=== PATIENT | male | born 1960 | race Caucasian/White ===

== ENCOUNTER 2017-11-30 20:46 | Inpatient (IN) | payer MEDICAID ==
--- NOTE | 2017-11-30 21:20 | ED Physician Chart ---
ED Chief Complaint/HPI - Patient Information Date Seen:: 11/30/17 Time Seen:: 21:10 Chief Complaint:: anemia History of Present Illness:: Patient sent from his halfway facility for hemoglobin of 7.3. Patient stated he stopped drinking alcohol about 2 weeks. He denies abdominal pain. Allergies:: Allergies Allergy/AdvReac Type Severity Reaction Status Date / Time No Known Allergies Allergy Verified 11/30/17 21:07 Historian:: Patient, EMS Review:: Nurse's Note Reviewed ED Review of Systems - Review of Systems General/Constitutional: No fever, No chills Skin: No skin lesions Head: No headache Eyes: No loss of vision ENT: No earache Neck: No neck pain Cardio Vascular: No chest pain, No palpitations Pulmonary: No SOB GI: No nausea, No vomiting, No diarrhea G/U: No dysuria Musculoskeletal: No bone or joint pain Endocrine: No polyuria Psychiatric: No prior psych history Hematopoietic: No bruising Allergic/Immuno: No urticaria Neurological: No syncope ED Past Medical History - Past Medical History Past Medical History: Other (Mr. cody; cirrhosis; portal hypertension; anemia ; denied prostatic hypertrophy; thrombotic cytopenic purpura; status post septic shock; history of opioid and methadone abuse; cellulitis) Family History: None Social History: Smoker (quit smoking a long time ago) Family Medical History - Family Member Mother History Unknown: Yes ED Physical Exam - Physical Examination General/Constitutional: No distress Other Gen/Cons comments:: Mildly chronically ill-appearing Head: Atraumatic Eyes: Lids, conjuctiva normal, PERRL Skin: Nl inspection ENMT: External ears, nose nl, TM canals nl, Nasal exam nl Other ENMT comments:: Poor dental hygiene Neck: No nuchal rigidity Respiratory: Nl effort/Exclusion, Clear to Auscultation Cardio Vascular: RRR, No murmur, gallop, rubs GI: No tenderness/rebounding/guarding, Normal BS's Other GI comments:: Abdomen protuberant : No CVA tenderness Extremities: Normal digits & nails Neuro/Psych: No focal deficits ED Labs/Radiology/EKG Results - Lab Results Results: Abnormal Lab Results 11/30/17 11/30/17 11/30/17 21:31 21:31 21:31 WBC 10.3 RBC 2.70 L Hgb 8.2 L Hct 24.6 L MCV 91.3 MCH 30.5 H MCHC Differential 33.4 RDW 14.6 Plt Count 171 MPV 6.9 Neutrophils % 64.3 Lymphocytes % 22.3 Monocytes % 10.9 H Eosinophils % 2.2 Basophils % 0.3 PT 12.0 H INR 1.14 Sodium 126 L Potassium 3.9 Chloride 103 Carbon Dioxide 16.4 L Anion Gap 10.5 BUN 16 Creatinine 1.0 Est GFR ( Amer) > 60.0 Est GFR (Non-Af Amer) > 60.0 BUN/Creatinine Ratio 16.0 Glucose 153 H Calcium 8.5 L Magnesium 1.6 L ED Assessment - Assessment General Assessment: will not order stat transfusion because Hb 8.2 ED Septic Shock - . Is Septic Shock (SBP<90, OR Lactate>4 mmol\L) present?: No ED Reassessment (Disposition) - Reassessment Reassessment Condition:: Unchanged - Diagnosis Diagnosis:: anemia; cirrhosis; hyponatremia - Patient Disposition Spoke to:: Mason Cooper Admitting Medical Physician:: Mason Cooper Condition at Disposition:: Stable, Unchanged
[2017-11-30 21:43] LABS: % BASOPHILS 0.3 % (0.0-2.0); % EOSINOPHILS 2.2 % (0.0-5.0); % LYMPHOCYTES 22.3 % (20.0-50.0); % MONOCYTES 10.9 % (2.0-10.0); % NEUTROPHILS 64.3 % (40.0-80.0); EOSINOPHILE ABSOLUTE 0.2 Th/cmm (0.1-0.4); HEMATOCRIT 24.6 % (41.0-60); HEMOGLOBIN 8.2 gm/dL (12-16); LYMPHOCYTE ABSOLUTE 2.3 Th/cmm (1.5-3.0); MEAN CELL VOLUME 91.3 fl (80-99); MEAN CORPUSCULAR HEMOGLOBIN 30.5 pg (26.0-30.0); MEAN CORPUSCULAR HGB CONC 33.4 pg (28.0-36.0); MEAN PLATELET VOLUME 6.9 fl; MONOCYTE ABSOLUTE 1.1 Th/cmm (0.3-1.0); NEUTROPHILE ABSOLUTE 6.7 Th/cmm (1.8-8.0); PLATELET COUNT 171 Th/cmm (150-400); RED CELL DISTRIBUTION WIDTH 14.6 % (11.5-20.0); WHITE BLOOD COUNT 10.3 Th/cmm (4.8-10.8)
[2017-11-30 21:55] LABS: INR 1.14 (0.5-1.4)
[2017-11-30 21:57] LABS: ANION GAP 10.5 (7.0-16.0); BUN - UREA NITROGEN 16 mg/dL (7-25); CALCIUM SERUM 8.5 mg/dL (8.6-10.3); CARBON DIOXIDE 16.4 mEq/L (21.0-31.0); CHLORIDE 103 mEq/L (98-107); GFR AFRICAN-AMERICAN > 60.0 ml/min (>90); GFR NON AFRICAN-AMERICAN > 60.0 ml/min; GLUCOSE 153 mg/dL (70-105); MAGNESIUM 1.6 mg/dL (1.9-2.7); POTASSIUM SERUM 3.9 mEq/L (3.5-5.1); SODIUM SERUM 126 mEq/L (136-145)
[2017-11-30] MEDS ORDERED: Albuterol/Ipratropium Neb 3 ML AERS HHN PRN (22:17)
[2017-11-30] MEDS: Morphine Sulfate 2 mg/mL 1mL Syr IVP PRN (23:56)
[2017-12-01] MEDS: Morphine Sulfate 2 mg/mL 1mL Syr IVP PRN ×5 (03:20→20:04)
[2017-12-01 05:34] LABS: % BASOPHILS 1.2 % (0.0-2.0); % EOSINOPHILS 2.1 % (0.0-5.0); % MONOCYTES 8.8 % (2.0-10.0); % NEUTROPHILS 69.9 % (40.0-80.0); BASOPHILE ABSOLUTE 0.1 Th/cumm (0-0.2); EOSINOPHILE ABSOLUTE 0.2 Th/cmm (0.1-0.4); LYMPHOCYTE ABSOLUTE 1.7 Th/cmm (1.5-3.0); MEAN CELL VOLUME 91.4 fl (80-99); MEAN CORPUSCULAR HEMOGLOBIN 30.7 pg (26.0-30.0); MEAN CORPUSCULAR HGB CONC 33.6 pg (28.0-36.0); MEAN PLATELET VOLUME 6.7 fl; MONOCYTE ABSOLUTE 0.8 Th/cmm (0.3-1.0); NEUTROPHILE ABSOLUTE 6.7 Th/cmm (1.8-8.0); PLATELET COUNT 149 Th/cmm (150-400); RED BLOOD COUNT 2.45 Mil/cmm (4.30-5.70); RED CELL DISTRIBUTION WIDTH 14.8 % (11.5-20.0); WHITE BLOOD COUNT 9.5 Th/cmm (4.8-10.8)
[2017-12-01 05:43] VITALS: BP 129/77
[2017-12-01 05:51] LABS: HEMATOCRIT 22.4 % (41.0-60); HEMOGLOBIN 7.5 gm/dL (12-16)
[2017-12-01 05:55] LABS: CHOLESTEROL 61 mg/dL (<200); HDL -HIGH DENSITY LIPOPROTEIN 13 mg/dL (23-92); TRIGLYCERIDES 97 mg/dL (<150)
[2017-12-01 05:56] LABS: ANION GAP 9.4 (7.0-16.0); BUN - UREA NITROGEN 17 mg/dL (7-25); CALCIUM SERUM 8.3 mg/dL (8.6-10.3); CARBON DIOXIDE 17.5 mEq/L (21.0-31.0); CHLORIDE 103 mEq/L (98-107); CREATININE - SERUM 1.1 mg/dL (0.7-1.3); GFR AFRICAN-AMERICAN > 60.0 ml/min (>90); GFR NON AFRICAN-AMERICAN > 60.0 ml/min; GLUCOSE 140 mg/dL (70-105); POTASSIUM SERUM 3.9 mEq/L (3.5-5.1); SODIUM SERUM 126 mEq/L (136-145)
[2017-12-01 11:07] LABS: ALB/GLOB RATIO 0.4 (1.0-1.8); ALBUMIN 2.2 gm/dL (4.2-5.5); BILIRUBIN,DIRECT 1.17 mg/dL (0.0-0.2); BILIRUBIN,TOTAL 1.9 mg/dL (0.3-1.0); TOTAL PROTEIN,SERUM 7.4 gm/dL (6.0-8.3)
--- NOTE | 2017-12-01 14:27 | Diagnostic Imaging Report ---
Abdominal scan HISTORY: Cirrhosis, pain The liver appears enlarged. No focal lesions. The exam of the gallbladder demonstrates an approximate 1.0 cm intraluminal echogenic density with acoustic shadowing. Findings are consistent with cholelithiasis. No biliary dilatation (common bile duct equals 3 mm). The pancreas cannot be seen due to bowel gas. No focal renal lesions. No hydronephrosis. The spleen is enlarged (19.0 cm length). No other retroperitoneal or intra-abdominal abnormalities. IMPRESSION: 1. Somewhat limited exam due to patient's size, body habitus, bowel gas 2. Hepatomegaly 3. Findings consistent with cholelithiasis
--- NOTE | 2017-12-01 17:27 | History and Physical ---
History of Present Illness - HPI Chief Complaint: low hgb 7.3 HPI: This is a 57 year old male who is a resident of [facility] who is admitted for low hgb of 7.3. Vital Signs: Last Vital Signs Temp 98.8 F 12/01/17 12:00 Pulse 103 12/01/17 12:00 Resp 20 12/01/17 12:00 BP 132/66 12/01/17 12:00 Pulse Ox 98 12/01/17 12:00 Past Medical History Other History: cirrhosis; portal hypertension; anemia; denied prostatic hypertrophy; thrombotic cytopenic purpura; status post septic shock; history of opioid and methadone abuse; cellulitis Family Medical History - Family Member Mother History Unknown: Yes Social History Smoke: No, Quit Alcohol: Heavy Drugs: None Lives: Halfway - Medications Home Medications: Home Medication Medication Instructions Recorded Type Acetaminophen [Tylenol] 325 mg PO Q4HR PRN 11/30/17 History Ascorbic Acid [Vitamin C] 500 mg PO DAILY 11/30/17 History Bisacodyl [Dulcolax 10 Mg Supp] 10 mg RC DAILY PRN 11/30/17 History Clonidine HCl [Catapres] 0.1 mg PO Q4HR PRN 11/30/17 History Docusate Sodium [Colace] 100 mg PO DAILY 11/30/17 History Ipratropium Neb 0.5 mg/2.5 mL 0.5 mg HHN Q6HR PRN 11/30/17 History [Atrovent Neb 0.5MG/2.5ML] Levalbuterol HCl [Xopenex 3 ml] 3 ml IH Q6HR PRN 11/30/17 History Magnesium Hydroxide [Milk of 30 ml PO HS PRN 11/30/17 History Magnesia] Multivitamin w/ Minerals 1 tab PO DAILY 11/30/17 History [Theragran M] Neomycin Sulfate [Neomycin] 250 mg PO Q6HR 11/30/17 History Ondansetron [Zofran ODT] 4 mg PO Q6HR 11/30/17 History Pantoprazole [Protonix] 40 mg PO BID 11/30/17 History Vancomycin HCl 750 mg IV Q12HR 11/30/17 History Zolpidem Tartrate [Ambien] 5 mg PO HS PRN 11/30/17 History - Allergies Allergies/Adverse Reactions: Allergies Allergy/AdvReac Type Severity Reaction Status Date / Time No Known Allergies Allergy Verified 11/30/17 21:07 Review of Systems - Review of Systems Constitutional: Report: No Significant Eyes: Report: No Significant ENT: Report: No Significant Respiratory: Report: No Significant Cardiovascular: Report: No Significant Gastrointestinal: Report: No Significant Genitourinary: Report: No Significant Musculoskeletal: Report: No Significant Skin: Report: No Significant Neurological: Report: Weakness Physical Exam - Physical Exam HEENT: Report: Ears Nose Throat within normal limits Neck: Report: Within normal limits Cardiovascular Systems: Report: +s1/s2 noted Respiratory: Report: Breath Sounds are within normal limits Abdomen: Report: Non-tender to palpation Back: Report: Inspection of back is within normal limits. Extremities: Report: Non-tender to palpation. Skin: Report: Color of skin is within normal limits - Lab Results All Lab Results last 24 hours: Laboratory Results - last 24 hr 11/30/17 12/01/17 12/01/17 23:20 05:20 05:20 WBC 9.5 RBC 2.45 L Hgb 7.5 L* Hct 22.4 L MCV 91.4 MCH 30.7 H MCHC Differential 33.6 RDW 14.8 Plt Count 149 L MPV 6.7 Neutrophils % 69.9 Lymphocytes % 18.0 L Monocytes % 8.8 Eosinophils % 2.1 Basophils % 1.2 Sodium 126 L Potassium 3.9 Chloride 103 Carbon Dioxide 17.5 L Anion Gap 9.4 BUN 17 Creatinine 1.1 Est GFR ( Amer) > 60.0 Est GFR (Non-Af Amer) > 60.0 BUN/Creatinine Ratio 15.5 Glucose 140 H Calcium 8.3 L Total Bilirubin Direct Bilirubin AST ALT Alkaline Phosphatase Ammonia 39 Total Protein Albumin Globulin Albumin/Globulin Ratio Triglycerides Cholesterol LDL Cholesterol Direct HDL Cholesterol TSH 12/01/17 12/01/17 12/01/17 05:20 05:20 05:20 WBC RBC Hgb Hct MCV MCH MCHC Differential RDW Plt Count MPV Neutrophils % Lymphocytes % Monocytes % Eosinophils % Basophils % Sodium Potassium Chloride Carbon Dioxide Anion Gap BUN Creatinine Est GFR ( Amer) Est GFR (Non-Af Amer) BUN/Creatinine Ratio Glucose Calcium Total Bilirubin 1.9 H Direct Bilirubin 1.17 H AST 88 H ALT 63 H Alkaline Phosphatase 124 H Ammonia Total Protein 7.4 Albumin 2.2 L Globulin 5.2 Albumin/Globulin Ratio 0.4 L Triglycerides 97 Cholesterol 61 LDL Cholesterol Direct 37 L HDL Cholesterol 13 L TSH 6.18 H - Assessment Assessment: anemia cirrhosis portal hypertension 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
[2017-12-01 19:23] LABS: % BASOPHILS 3.9 % (0.0-2.0); % EOSINOPHILS 2.4 % (0.0-5.0); % LYMPHOCYTES 19.7 % (20.0-50.0); % MONOCYTES 9.2 % (2.0-10.0); % NEUTROPHILS 64.8 % (40.0-80.0); BASOPHILE ABSOLUTE 0.4 Th/cumm (0-0.2); EOSINOPHILE ABSOLUTE 0.2 Th/cmm (0.1-0.4); HEMATOCRIT 24.2 % (41.0-60); HEMOGLOBIN 8.2 gm/dL (12-16); LYMPHOCYTE ABSOLUTE 1.8 Th/cmm (1.5-3.0); MEAN CELL VOLUME 90.3 fl (80-99); MEAN CORPUSCULAR HEMOGLOBIN 30.7 pg (26.0-30.0); MONOCYTE ABSOLUTE 0.9 Th/cmm (0.3-1.0); PLATELET COUNT 164 Th/cmm (150-400); RED BLOOD COUNT 2.68 Mil/cmm (4.30-5.70); RED CELL DISTRIBUTION WIDTH 14.6 % (11.5-20.0); WHITE BLOOD COUNT 9.3 Th/cmm (4.8-10.8)
--- NOTE | 2017-12-01 21:14 | History & Physical ---
ADMIT DATE: 12/01/2017 DICTATED FOR: Dr. Cooper JOB# [id number]
[2017-12-01] MEDS: Sodium Chloride 0.9% 1,000 ML IV SCH ×2 (22:41)
[2017-12-02] MEDS: Morphine Sulfate 2 mg/mL 1mL Syr IVP PRN ×4 (01:52→20:01)
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
[2017-12-02 06:00] LABS: % BASOPHILS 0.1 % (0.0-2.0); EOSINOPHILE ABSOLUTE 0.2 Th/cmm (0.1-0.4); LYMPHOCYTE ABSOLUTE 1.8 Th/cmm (1.5-3.0); RED BLOOD COUNT 2.49 Mil/cmm (4.30-5.70); RED CELL DISTRIBUTION WIDTH 14.5 % (11.5-20.0)
[2017-12-02 06:11] LABS: ANION GAP 9.8 (7.0-16.0); BUN - UREA NITROGEN 18 mg/dL (7-25); CALCIUM SERUM 7.8 mg/dL (8.6-10.3); CARBON DIOXIDE 17.7 mEq/L (21.0-31.0); CHLORIDE 103 mEq/L (98-107); CREATININE - SERUM 1.1 mg/dL (0.7-1.3); GFR AFRICAN-AMERICAN > 60.0 ml/min (>90); GFR NON AFRICAN-AMERICAN > 60.0 ml/min; GLUCOSE 110 mg/dL (70-105); POTASSIUM SERUM 3.5 mEq/L (3.5-5.1); SODIUM SERUM 127 mEq/L (136-145)
[2017-12-02 06:12] LABS: INR 1.22 (0.5-1.4); PROTHROMBIN TIME (TEST) 12.8 SECONDS (9.5-11.5)
[2017-12-02 07:52] LABS: HEMATOCRIT 22.6 % (41.0-60); MEAN CELL VOLUME 90.8 fl (80-99); MEAN CORPUSCULAR HGB CONC 34.2 pg (28.0-36.0)
[2017-12-02 07:53] LABS: % EOSINOPHILS 2.7 % (0.0-5.0); % MONOCYTES 10.5 % (2.0-10.0); % NEUTROPHILS 65.7 % (40.0-80.0); MEAN PLATELET VOLUME 7.5 fl; MONOCYTE ABSOLUTE 0.9 Th/cmm (0.3-1.0); NEUTROPHILE ABSOLUTE 5.7 Th/cmm (1.8-8.0)
[2017-12-02 07:56] LABS: PLATELET COUNT 128 Th/cmm (150-400); WHITE BLOOD COUNT 8.6 Th/cmm (4.8-10.8)
--- NOTE | 2017-12-02 08:54 | GI Progress Note ---
Subjective - Review of Systems Service Date: 12/02/17 Subjective: Tolerated half bowel prep, reports he is clear. Hgb 7.7 Objective - Results Result Diagrams: 12/02/17 05:02 12/02/17 05:02 Recent Labs: Laboratory Last Values WBC 8.6 Th/cmm (4.8-10.8) 12/02/17 05:02 RBC 2.49 Mil/cmm (4.30-5.70) L 12/02/17 05:02 Hgb 7.7 gm/dL (12-16) L* 12/02/17 05:02 Hct 22.6 % (41.0-60) L 12/02/17 05:02 MCV 90.8 fl (80-99) 12/02/17 05:02 MCH 31.0 pg (26.0-30.0) H 12/02/17 05:02 MCHC Differential 34.2 pg (28.0-36.0) 12/02/17 05:02 RDW 14.5 % (11.5-20.0) 12/02/17 05:02 Plt Count 128 Th/cmm (150-400) L D 12/02/17 05:02 MPV 7.5 fl 12/02/17 05:02 Neutrophils % 65.7 % (40.0-80.0) 12/02/17 05:02 Lymphocytes % 21.0 % (20.0-50.0) 12/02/17 05:02 Monocytes % 10.5 % (2.0-10.0) H 12/02/17 05:02 Eosinophils % 2.7 % (0.0-5.0) 12/02/17 05:02 Basophils % 0.1 % (0.0-2.0) 12/02/17 05:02 PT 12.8 SECONDS (9.5-11.5) H 12/02/17 05:02 INR 1.22 (0.5-1.4) 12/02/17 05:02 Sodium 127 mEq/L (136-145) L 12/02/17 05:02 Potassium 3.5 mEq/L (3.5-5.1) 12/02/17 05:02 Chloride 103 mEq/L (98-107) 12/02/17 05:02 Carbon Dioxide 17.7 mEq/L (21.0-31.0) L 12/02/17 05:02 Anion Gap 9.8 (7.0-16.0) 12/02/17 05:02 BUN 18 mg/dL (7-25) 12/02/17 05:02 Creatinine 1.1 mg/dL (0.7-1.3) 12/02/17 05:02 Est GFR ( Amer) > 60.0 ml/min (>90) 12/02/17 05:02 Est GFR (Non-Af Amer) > 60.0 ml/min 12/02/17 05:02 BUN/Creatinine Ratio 16.4 12/02/17 05:02 Glucose 110 mg/dL (70-105) H 12/02/17 05:02 Calcium 7.8 mg/dL (8.6-10.3) L 12/02/17 05:02 Magnesium 1.6 mg/dL (1.9-2.7) L 11/30/17 21:31 Total Bilirubin 1.9 mg/dL (0.3-1.0) H 12/01/17 05:20 Direct Bilirubin 1.17 mg/dL (0.0-0.2) H 12/01/17 05:20 AST 88 U/L (13-39) H 12/01/17 05:20 ALT 63 U/L (7-52) H 12/01/17 05:20 Alkaline Phosphatase 124 U/L (34-104) H 12/01/17 05:20 Ammonia 39 umol/L (16-53) 11/30/17 23:20 Total Protein 7.4 gm/dL (6.0-8.3) 12/01/17 05:20 Albumin 2.2 gm/dL (4.2-5.5) L 12/01/17 05:20 Globulin 5.2 gm/dL 12/01/17 05:20 Albumin/Globulin Ratio 0.4 (1.0-1.8) L 12/01/17 05:20 Triglycerides 97 mg/dL (<150) 12/01/17 05:20 Cholesterol 61 mg/dL (<200) 12/01/17 05:20 LDL Cholesterol Direct 37 mg/dL (75-193) L 12/01/17 05:20 HDL Cholesterol 13 mg/dL (23-92) L 12/01/17 05:20 TSH 6.18 uIU/ml (0.34-5.60) H 12/01/17 05:20 Blood Type A POSITIVE 11/30/17 21:31 Antibody Screen NEGATIVE 11/30/17 21:31 Crossmatch See Detail 11/30/17 21:31 - Physical Exam Vitals and I&O: Vital Signs Temp 98.8 F 12/02/17 08:00 Pulse 95 12/02/17 08:00 Resp 18 12/02/17 08:00 BP 114/65 12/02/17 08:00 Pulse Ox 100 12/02/17 08:00 Intake & Output 12/01/17 12/02/17 12/02/17 18:59 06:59 18:59 Intake Total 1850 1000 Balance 1850 1000 Weight (lbs) 106.594 kg Intake: Intake, IV Amount 1000 Sodium Chloride 0.9% 1, 1000 000 ml @ 50 mls/hr IV . Q20H [facility] Rx#:[id number] Oral 1600 Blood Product 250 Other: # Voids 5 # Bowel Movements 2 Active Medications: Current Medications Albuterol/Ipratropium (Duoneb Neb) 3 ml HHN Q4HRT PRN PRN Reason: Shortness of Breath Stop: 01/29/18 22:16 Sodium Chloride (Nacl 0.9%) 1,000 mls @ 50 mls/hr IV .Q20H [facility] Stop: 01/29/18 22:17 Last Admin: 12/01/17 22:41 Dose: 50 mls/hr Morphine Sulfate (Morphine) 1 mg IVP Q3HR PRN PRN Reason: Pain (Moderate) Stop: 01/29/18 23:19 Last Admin: 12/01/17 13:11 Dose: 1 mg Morphine Sulfate (Morphine) 2 mg IVP Q3HR PRN PRN Reason: Pain (Severe) Stop: 01/29/18 23:21 Last Admin: 12/02/17 05:04 Dose: 2 mg Ondansetron HCl (Zofran) 4 mg IVP Q6H PRN PRN Reason: Nausea / Vomiting Stop: 01/29/18 23:23 Pantoprazole Sodium (Protonix) 40 mg IVP DAILY [facility] Stop: 01/30/18 08:59 Last Admin: 12/01/17 08:37 Dose: 40 mg General: Alert, Oriented x3 HEENT: Atraumatic Neck: Supple Cardiovascular: Regular rate Abdomen: Bowel sounds, Soft, Other (no guard, mild distension, no rebound) Neurological: Normal speech Psych/Mental Status: Mental status NL - Procedures Procedures: Procedures Procedure Code Date BLOOD TRANSFUSION SERVICE 35259 11/30/17 TRANSFUSE NONAUT RED BLOOD CELLS IN PERIPH VEIN, [facility] [id number] 11/30/17 Assessment/Plan - Assessment Assessment: # Anemia Unclear etiology. Possibilities include GI blood loss, bone marrow suppression from EtOH, or non blood loss anemia. EGD/colo scheduled for today. # Elevated LFTs # Alcoholism May have early cirrhosis, although US does not show classic changes, and there is no ascites. Likely at least has component of alcoholic liver disease causing elevated LFTs. Plan: - abstain from EtOH - join AA - EGD/colo - track LFTs - transfuse to keep hgb > 7 - may need iron supplementation
--- NOTE | 2017-12-02 10:25 | Operative Report ---
DATE OF SURGERY: 12/02/2017 INPATIENT EGD AND COLONOSCOPY REPORT ENDOSCOPIST: Henrry Silva M.D. PROCEDURE PERFORMED: EGD with biopsy and colonoscopy with control of bleeding. PREOPERATIVE DIAGNOSES: Alcoholism and anemia. POSTOPERATIVE DIAGNOSES: Gastritis, gastric erosions and rectal ulcer, diverticulosis. INDICATIONS: The patient is a 57-year-old male who is homeless and admits to drinking daily alcohol and using opiates, who has been admitted to a custodial facility recovering from a prolonged hospitalization for weakness and lower extremity cellulitis and was sent to the hospital for anemia. The patient never before had endoscopic examination. CONSENT: Informed consent was obtained from the patient. The risks and benefits of the procedure were discussed and included but not limited to infection, bleeding, perforation, need for surgery, cardiopulmonary complications, missed pathology and . The patient indicates understanding of these risks and wished to go forward with the procedure and signed the consent form. ANESTHESIA: Anesthesia was administered under the care of an anesthesiologist in this case. PROCEDURE IN DETAIL: After the initiation of general anesthesia under the care of anesthesiologist the patient was positioned in the left lateral decubitus position and a mouthpiece was inserted and secured. Next, the gastroscope was introduced into the mouth and guided under direct visualization into the esophagus, stomach and duodenum. The scope was then slowly withdrawn making sure to examine the entire mucosa. Retroflexion was performed in the stomach prior to scope was straightening and withdrawal from the body. The patient was repositioned into the colonoscopy position. A rectal exam was performed, and after this, a well lubricated colonoscope was introduced into the anus and guided under direct visualization into the level of the cecum, which was confirmed by the presence of the appendiceal orifice and IC valve, which were photographed. The scope was then systematically and slowly withdrawn making sure to carefully examine the entire colonic mucosa as much as was available. Retroflexion was performed in the rectum prior to scope straightening and withdrawal from the body. There were no obvious complications at the end of procedure. FINDINGS: EGD PORTION: Esophagus: The GE junction was located at 43 cm from the incisors. There were possibly trace esophageal varices, although these flattened on insufflation. There is no sign of esophagitis, evidence of bleeding in this area or mass lesion. Stomach: The stomach displayed diffuse gastritis in the cardia and fundus area. There appeared to be what looked like portal hypertensive gastropathy. In addition, there were large gastric folds in the gastric body, there were also gastric erosions, small gastric ulcers that were nonbleeding located in the antrum and angularis area. Excisional biopsies were taken from the antrum and from the gastric body separately as well as ROSE MARIE testing. There was no mass lesion found in the stomach. Duodenum: Duodenal bulb and second portion appeared endoscopically normal. COLONOSCOPY PORTION: The [place] bowel prep score was 2 in all segments of the colon. There were some areas of solid stool that obscured some areas to view and thus polyps less than 1 cm in size may have been missed in these areas. There were no polyps found on this examination. There was [id number] diverticulosis in the sigmoid colon that was nonbleeding at this time. Additionally, in the rectum at about 10 cm, there was a linear ulcer. It appeared to have a visible vessel within it. This was mildly oozing at the time of the endoscopy and a single clip was used to cover this area and hemostasis was achieved. On retroflexed view, there were small internal hemorrhoids noted. IMPRESSION: 1. Gastropathy and gastritis. 2. Small gastric erosions and gastric ulcer, status post biopsies. 3. Diverticulosis of the sigmoid colon. 4. Rectal ulcer with visible vessel, status post Hemoclip. 5. Internal hemorrhoids. Although the patient did not report any hematochezia, it is possible that the rectal ulcer that was observed did contribute to the patient's anemia, which now has been clipped although I do suspect that the patient has a component of the anemia from alcoholism and nutritional deficiency as well. RECOMMENDATION: 1. Follow up biopsy results. Treat H. pylori if positive. 2. The patient is not due for another colonoscopy for another 5 years. 3. The patient likely will benefit from iron supplementation and we will start this now. Follow up iron studies. 4. 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 Thank you for allowing me to participate in this patient's care. Please call with any further questions. [facility]# [id number]
[2017-12-02] MEDS ORDERED: fentaNYL Citrate 100 mcg/2mL Vial ONE (10:43)
--- NOTE | 2017-12-02 11:56 | General Progress Note ---
Subjective - Review of Systems Events since last encounter: egd and colonoscopy done this am no distress Objective - Results Result Diagrams: 12/02/17 05:02 12/02/17 05:02 Recent Labs: Laboratory Last Values WBC 8.6 Th/cmm (4.8-10.8) 12/02/17 05:02 RBC 2.49 Mil/cmm (4.30-5.70) L 12/02/17 05:02 Hgb 7.7 gm/dL (12-16) L* 12/02/17 05:02 Hct 22.6 % (41.0-60) L 12/02/17 05:02 MCV 90.8 fl (80-99) 12/02/17 05:02 MCH 31.0 pg (26.0-30.0) H 12/02/17 05:02 MCHC Differential 34.2 pg (28.0-36.0) 12/02/17 05:02 RDW 14.5 % (11.5-20.0) 12/02/17 05:02 Plt Count 128 Th/cmm (150-400) L D 12/02/17 05:02 MPV 7.5 fl 12/02/17 05:02 Neutrophils % 65.7 % (40.0-80.0) 12/02/17 05:02 Lymphocytes % 21.0 % (20.0-50.0) 12/02/17 05:02 Monocytes % 10.5 % (2.0-10.0) H 12/02/17 05:02 Eosinophils % 2.7 % (0.0-5.0) 12/02/17 05:02 Basophils % 0.1 % (0.0-2.0) 12/02/17 05:02 PT 12.8 SECONDS (9.5-11.5) H 12/02/17 05:02 INR 1.22 (0.5-1.4) 12/02/17 05:02 Sodium 127 mEq/L (136-145) L 12/02/17 05:02 Potassium 3.5 mEq/L (3.5-5.1) 12/02/17 05:02 Chloride 103 mEq/L (98-107) 12/02/17 05:02 Carbon Dioxide 17.7 mEq/L (21.0-31.0) L 12/02/17 05:02 Anion Gap 9.8 (7.0-16.0) 12/02/17 05:02 BUN 18 mg/dL (7-25) 12/02/17 05:02 Creatinine 1.1 mg/dL (0.7-1.3) 12/02/17 05:02 Est GFR ( Amer) > 60.0 ml/min (>90) 12/02/17 05:02 Est GFR (Non-Af Amer) > 60.0 ml/min 12/02/17 05:02 BUN/Creatinine Ratio 16.4 12/02/17 05:02 Glucose 110 mg/dL (70-105) H 12/02/17 05:02 Calcium 7.8 mg/dL (8.6-10.3) L 12/02/17 05:02 Magnesium 1.6 mg/dL (1.9-2.7) L 11/30/17 21:31 Total Bilirubin 1.9 mg/dL (0.3-1.0) H 12/01/17 05:20 Direct Bilirubin 1.17 mg/dL (0.0-0.2) H 12/01/17 05:20 AST 88 U/L (13-39) H 12/01/17 05:20 ALT 63 U/L (7-52) H 12/01/17 05:20 Alkaline Phosphatase 124 U/L (34-104) H 12/01/17 05:20 Ammonia 39 umol/L (16-53) 11/30/17 23:20 Total Protein 7.4 gm/dL (6.0-8.3) 12/01/17 05:20 Albumin 2.2 gm/dL (4.2-5.5) L 12/01/17 05:20 Globulin 5.2 gm/dL 12/01/17 05:20 Albumin/Globulin Ratio 0.4 (1.0-1.8) L 12/01/17 05:20 Triglycerides 97 mg/dL (<150) 12/01/17 05:20 Cholesterol 61 mg/dL (<200) 12/01/17 05:20 LDL Cholesterol Direct 37 mg/dL (75-193) L 12/01/17 05:20 HDL Cholesterol 13 mg/dL (23-92) L 12/01/17 05:20 TSH 6.18 uIU/ml (0.34-5.60) H 12/01/17 05:20 Ethyl Alcohol < 10 mg/dL (0-10) 12/02/17 05:02 Blood Type A POSITIVE 11/30/17 21:31 Antibody Screen NEGATIVE 11/30/17 21:31 Crossmatch See Detail 11/30/17 21:31 - Physical Exam Vitals and I&O: Vital Signs Temp 98.8 F 12/02/17 08:00 Pulse 95 12/02/17 08:00 Resp 18 12/02/17 08:00 BP 114/65 12/02/17 08:00 Pulse Ox 100 12/02/17 08:00 Intake & Output 12/01/17 12/02/17 12/02/17 18:59 06:59 18:59 Intake Total 1850 1000 Balance 1850 1000 Weight (lbs) 106.594 kg Intake: Intake, IV Amount 1000 Sodium Chloride 0.9% 1, 1000 000 ml @ 50 mls/hr IV . Q20H [facility] Rx#:[id number] Oral 1600 Blood Product 250 Other: # Voids 5 # Bowel Movements 2 Active Medications: Current Medications Albuterol/Ipratropium (Duoneb Neb) 3 ml HHN Q4HRT PRN PRN Reason: Shortness of Breath Stop: 01/29/18 22:16 Ferrous Sulfate (Iron) 325 mg PO BID [facility] Stop: 01/31/18 16:59 Sodium Chloride (Nacl 0.9%) 1,000 mls @ 50 mls/hr IV .Q20H [facility] Stop: 01/29/18 22:17 Last Admin: 12/01/17 22:41 Dose: 50 mls/hr Morphine Sulfate (Morphine) 1 mg IVP Q3HR PRN PRN Reason: Pain (Moderate) Stop: 01/29/18 23:19 Last Admin: 12/01/17 13:11 Dose: 1 mg Morphine Sulfate (Morphine) 2 mg IVP Q3HR PRN PRN Reason: Pain (Severe) Stop: 01/29/18 23:21 Last Admin: 12/02/17 05:04 Dose: 2 mg Ondansetron HCl (Zofran) 4 mg IVP Q6H PRN PRN Reason: Nausea / Vomiting Stop: 01/29/18 23:23 Pantoprazole Sodium (Protonix) 40 mg IVP DAILY [facility] Stop: 01/30/18 08:59 Last Admin: 12/02/17 09:33 Dose: Not Given General: Alert, Oriented x3 HEENT: Atraumatic Neck: Supple Cardiovascular: Regular rate Abdomen: Bowel sounds, Soft, Other (no guard, mild distension, no rebound) Neurological: Normal speech Psych/Mental Status: Mental status NL - Procedures Procedures: Procedures Procedure Code Date BLOOD TRANSFUSION SERVICE 54174 11/30/17 TRANSFUSE NONAUT RED BLOOD CELLS IN PERIPH VEIN, PERC 22327N7 11/30/17
[2017-12-02 12:12] LABS: HEP A AB IGM Negative (Negative); HEP B CORE IGM Negative (Negative); HEP B SURFACE AG QL Negative (Negative); HEP C ANTIBODY >11.0 s/co ratio (0.0-0.9)
[2017-12-02] MEDS: Venelex 60gm Tube TP SCH (18:01)
[2017-12-02] MEDS: Ferrous Sulfate 325 MG TAB PO SCH (18:01)
[2017-12-02] MEDS: Sodium Chloride 0.9% 1,000 ML IV SCH (20:08)
[2017-12-03] MEDS: Morphine Sulfate 2 mg/mL 1mL Syr IVP PRN ×5 (00:34→21:56)
[2017-12-03 05:08] LABS: % BASOPHILS 0.1 % (0.0-2.0); % EOSINOPHILS 2.3 % (0.0-5.0); % LYMPHOCYTES 19.4 % (20.0-50.0); % MONOCYTES 8.6 % (2.0-10.0); % NEUTROPHILS 69.6 % (40.0-80.0); EOSINOPHILE ABSOLUTE 0.2 Th/cmm (0.1-0.4); HEMATOCRIT 24.4 % (41.0-60); HEMOGLOBIN 8.3 gm/dL (12-16); LYMPHOCYTE ABSOLUTE 1.5 Th/cmm (1.5-3.0); MEAN CELL VOLUME 90.2 fl (80-99); MEAN CORPUSCULAR HEMOGLOBIN 30.5 pg (26.0-30.0); MEAN CORPUSCULAR HGB CONC 33.8 pg (28.0-36.0); MEAN PLATELET VOLUME 7.1 fl; MONOCYTE ABSOLUTE 0.7 Th/cmm (0.3-1.0); NEUTROPHILE ABSOLUTE 5.2 Th/cmm (1.8-8.0); PLATELET COUNT 116 Th/cmm (150-400); RED BLOOD COUNT 2.71 Mil/cmm (4.30-5.70); RED CELL DISTRIBUTION WIDTH 14.1 % (11.5-20.0); WHITE BLOOD COUNT 7.6 Th/cmm (4.8-10.8)
[2017-12-03 05:19] LABS: ANION GAP 7.9 (7.0-16.0); BUN - UREA NITROGEN 15 mg/dL (7-25); CALCIUM SERUM 7.8 mg/dL (8.6-10.3); CARBON DIOXIDE 18.6 mEq/L (21.0-31.0); CHLORIDE 105 mEq/L (98-107); GFR AFRICAN-AMERICAN > 60.0 ml/min (>90); GFR NON AFRICAN-AMERICAN > 60.0 ml/min; GLUCOSE 115 mg/dL (70-105); POTASSIUM SERUM 3.5 mEq/L (3.5-5.1); SODIUM SERUM 128 mEq/L (136-145)
[2017-12-03] MEDS: Ferrous Sulfate 325 MG TAB PO SCH ×2 (08:17→17:25)
[2017-12-03] MEDS: Venelex 60gm Tube TP SCH (08:17)
--- NOTE | 2017-12-03 09:57 | General Progress Note ---
Subjective - Review of Systems Events since last encounter: patient awake in no distress Objective - Results Result Diagrams: 12/03/17 04:35 12/03/17 04:35 Recent Labs: Laboratory Last Values WBC 7.6 Th/cmm (4.8-10.8) 12/03/17 04:35 RBC 2.71 Mil/cmm (4.30-5.70) L 12/03/17 04:35 Hgb 8.3 gm/dL (12-16) L 12/03/17 04:35 Hct 24.4 % (41.0-60) L 12/03/17 04:35 MCV 90.2 fl (80-99) 12/03/17 04:35 MCH 30.5 pg (26.0-30.0) H 12/03/17 04:35 MCHC Differential 33.8 pg (28.0-36.0) 12/03/17 04:35 RDW 14.1 % (11.5-20.0) 12/03/17 04:35 Plt Count 116 Th/cmm (150-400) L 12/03/17 04:35 MPV 7.1 fl 12/03/17 04:35 Neutrophils % 69.6 % (40.0-80.0) 12/03/17 04:35 Lymphocytes % 19.4 % (20.0-50.0) L 12/03/17 04:35 Monocytes % 8.6 % (2.0-10.0) 12/03/17 04:35 Eosinophils % 2.3 % (0.0-5.0) 12/03/17 04:35 Basophils % 0.1 % (0.0-2.0) 12/03/17 04:35 PT 12.8 SECONDS (9.5-11.5) H 12/02/17 05:02 INR 1.22 (0.5-1.4) 12/02/17 05:02 Sodium 128 mEq/L (136-145) L 12/03/17 04:35 Potassium 3.5 mEq/L (3.5-5.1) 12/03/17 04:35 Chloride 105 mEq/L (98-107) 12/03/17 04:35 Carbon Dioxide 18.6 mEq/L (21.0-31.0) L 12/03/17 04:35 Anion Gap 7.9 (7.0-16.0) 12/03/17 04:35 BUN 15 mg/dL (7-25) 12/03/17 04:35 Creatinine 1.0 mg/dL (0.7-1.3) 12/03/17 04:35 Est GFR ( Amer) > 60.0 ml/min (>90) 12/03/17 04:35 Est GFR (Non-Af Amer) > 60.0 ml/min 12/03/17 04:35 BUN/Creatinine Ratio 15.0 12/03/17 04:35 Glucose 115 mg/dL (70-105) H 12/03/17 04:35 POC Glucose 107 MG/DL (70 - 105) H 12/02/17 07:03 Calcium 7.8 mg/dL (8.6-10.3) L 12/03/17 04:35 Magnesium 1.6 mg/dL (1.9-2.7) L 11/30/17 21:31 Total Bilirubin 1.9 mg/dL (0.3-1.0) H 12/01/17 05:20 Direct Bilirubin 1.17 mg/dL (0.0-0.2) H 12/01/17 05:20 AST 88 U/L (13-39) H 12/01/17 05:20 ALT 63 U/L (7-52) H 12/01/17 05:20 Alkaline Phosphatase 124 U/L (34-104) H 12/01/17 05:20 Ammonia 39 umol/L (16-53) 11/30/17 23:20 Total Protein 7.4 gm/dL (6.0-8.3) 12/01/17 05:20 Albumin 2.2 gm/dL (4.2-5.5) L 12/01/17 05:20 Globulin 5.2 gm/dL 12/01/17 05:20 Albumin/Globulin Ratio 0.4 (1.0-1.8) L 12/01/17 05:20 Triglycerides 97 mg/dL (<150) 12/01/17 05:20 Cholesterol 61 mg/dL (<200) 12/01/17 05:20 LDL Cholesterol Direct 37 mg/dL (75-193) L 12/01/17 05:20 HDL Cholesterol 13 mg/dL (23-92) L 12/01/17 05:20 TSH 6.18 uIU/ml (0.34-5.60) H 12/01/17 05:20 Ethyl Alcohol < 10 mg/dL (0-10) 12/02/17 05:02 Helicobacter pylori Ab NEGATIVE (NEGATIVE) 12/02/17 09:35 Hepatitis A IgM Ab Negative (Negative) 12/01/17 05:20 Hep Bs Antigen Negative (Negative) 12/01/17 05:20 Hep B Core IgM Ab Negative (Negative) 12/01/17 05:20 Hepatitis C Antibody >11.0 s/co ratio (0.0-0.9) H 12/01/17 05:20 Blood Type A POSITIVE 11/30/17 21:31 Antibody Screen NEGATIVE 11/30/17 21:31 Crossmatch See Detail 11/30/17 21:31 - Physical Exam Vitals and I&O: Vital Signs Temp 98.5 F 12/03/17 07:58 Pulse 98 12/03/17 08:12 Resp 19 12/03/17 08:16 BP 140/71 12/03/17 07:58 Pulse Ox 116 12/03/17 08:12 Intake & Output 12/02/17 12/03/17 12/03/17 18:59 06:59 18:59 Intake Total 1050 1300 Output Total 850 500 Balance 200 800 Weight (lbs) 106.594 kg 107.774 kg Intake: Intake, IV Amount 1000 Sodium Chloride 0.9% 1, 1000 000 ml @ 50 mls/hr IV . Q20H [facility] Rx#:[id number] Oral 800 300 Blood Product 250 Output: Urine 850 500 Other: # Voids 1 # Bowel Movements 1 Active Medications: Current Medications Albuterol/Ipratropium (Duoneb Neb) 3 ml HHN Q4HRT PRN PRN Reason: Shortness of Breath Stop: 01/29/18 22:16 [place] Oil/[place] Balsam/Trypsin (Venelex) 1 appl TP DAILY [facility] Stop: 01/31/18 16:59 Last Admin: 12/03/17 08:17 Dose: 1 appl Ferrous Sulfate (Iron) 325 mg PO BID [facility] Stop: 01/31/18 16:59 Last Admin: 12/03/17 08:17 Dose: 325 mg Sodium Chloride (Nacl 0.9%) 1,000 mls @ 50 mls/hr IV .Q20H [facility] Stop: 01/29/18 22:17 Last Admin: 12/02/17 20:08 Dose: 50 mls/hr Morphine Sulfate (Morphine) 1 mg IVP Q3HR PRN PRN Reason: Pain (Moderate) Stop: 01/29/18 23:19 Last Admin: 12/03/17 08:19 Dose: 1 mg Morphine Sulfate (Morphine) 2 mg IVP Q3HR PRN PRN Reason: Pain (Severe) Stop: 01/29/18 23:21 Last Admin: 12/03/17 04:22 Dose: 2 mg Ondansetron HCl (Zofran) 4 mg IVP Q6H PRN PRN Reason: Nausea / Vomiting Stop: 01/29/18 23:23 Pantoprazole Sodium (Protonix) 40 mg IVP DAILY [facility] Stop: 01/30/18 08:59 Last Admin: 12/03/17 08:17 Dose: 40 mg General: Alert, Oriented x3 HEENT: Atraumatic Neck: Supple Cardiovascular: Regular rate Abdomen: Bowel sounds, Soft, Other (no guard, mild distension, no rebound) Neurological: Normal speech Psych/Mental Status: Mental status NL - Procedures Procedures: Procedures Procedure Code Date BLOOD TRANSFUSION SERVICE 28631 11/30/17 COLONOSCOPY W/CONTROL BLEED 74639 11/30/17 CONTROL BLEEDING IN GASTROINTESTINAL TRACT, ENDO [id number] 11/30/17 EGD BIOPSY SINGLE/MULTIPLE 31032 11/30/17 EXCISION OF STOMACH, ENDO, DIAGN [id number] 11/30/17 TRANSFUSE NONAUT RED BLOOD CELLS IN PERIPH VEIN, PERC 32116J6 11/30/17 Assessment/Plan - Problem List Patient Problems: All Active Problems Anemia (Acute) D64.9 Cirrhosis (Acute) History of opioid abuse (Acute) Z87.898 Portal hypertension (Acute) K76.6 history of methadone abuse (Acute) thrombotic cytopenic purpura (Acute) - Plan Plan: cpm Nutritional Asmnt/Malnutr-PDOC - Dietary Evaluation Malnutrition Findings (Please click <Entered> for more info): Nutritional Asmnt/Malnutrition Start: 12/02/17 17: 22 Text: Status: Complete Freq: Document 12/02/17 17:22 LCHENG (Rec: 12/02/17 17:47 [email or web address] [id number]) Nutritional Asmnt/Malnutrition Patient General Information Nutritional Screening High Risk Consult Diagnosis anemia Pertinent Medical Hx/Surgical Hx cirrhosis, portal hypertinsion , anemia, BPH, thrombotic cytopenic purpure, s/p septic shock, opioid and methadone abuse, celluitis Subjective Information Consult received for coccygeal presure ulcer. Pt seen lying in bed at time of visit. Pt was NPO this morning for EGD, started clear liquid diet from lunch. Per notes, PO intake 25% of lunch and dinner (clear liquid diet) on 12/01. Current Diet Order/ Nutrition Support clear liquid Pertinent Medications iron, protonix, nacl 0.9% Pertinent Labs 12/02 Na 127, K 3.5, Cl 103, BUN 18, Cr 1.1, Glucose 110, Ca 7.8 Nutritional Hx/Data Height 1.73 m Height (Calculated Centimeters) 172.7 Current Weight (lbs) 106.594 kg Weight (Calculated Kilograms) 106.6 Weight (Calculated Grams) 214518.2 [place] Body Weight 154 % [place] Body Weight 153 Body Mass Index (BMI) 35.7 Weight Status Obese GI Symptoms GI Symptoms None Last BM 12/01 x 2 Difficult in: None Skin Integrity/Comment: Venous Stasis Ulcer to right and left lower leg, and coccyx Current %PO Negligible < 25% Estimated Nutritional Goals BEE in Kcals: Adj wt of IBW Calories/Kcals/Kg 25-30 Kcals Calculated 5351-3367 adj wt 76kg Protein: Adj wt of IBW Protein g/k-1.2 Protein Calculated 76-91 Fluid: ml 1900-2280ml (1ml/kcal) Nutritional Problem 2. Problem Problem increased nutrition needs ( calorie and protein) Etiology increased metabolic demand for wound healing Signs/Symptoms: Venous Stasis Ulcer to right and left lower leg, and coccyx 1. Problem Problem inadequate food intake Etiology possible poor appetite and pt on clear liquid diet Signs/Symptoms: PO intake 25% Malnutrition Alert Protein-Calorie Malnutrition N/A Is there a minimum of two criteria No selected? Query Text:Check all the applicable criteria. A minimum of two criteria are recommended for diagnosis of either severe or non-severe malnutrition. Intervention/Recommendation Comments 1. Recommend Boost Breeze TID for clear liquid diet to increase nutrition intake. Advance diet as tolerated. 2. Monitor PO intake, wt, labs and skin integrity 3. F/U as high risk in 2-3 days, 12/04-12/05 Expected Outcomes/Goals Expected Outcomes/Goals 1. PO intake to meet at least 75% of nutritional needs. 2. Wt stability, skin to remain intact, labs to approach WNL.
--- NOTE | 2017-12-03 10:18 | GI Progress Note ---
Subjective - Review of Systems Service Date: 12/03/17 Subjective: Complains of knee pain today Objective - Results Result Diagrams: 12/03/17 04:35 12/03/17 04:35 Recent Labs: Laboratory Last Values WBC 7.6 Th/cmm (4.8-10.8) 12/03/17 04:35 RBC 2.71 Mil/cmm (4.30-5.70) L 12/03/17 04:35 Hgb 8.3 gm/dL (12-16) L 12/03/17 04:35 Hct 24.4 % (41.0-60) L 12/03/17 04:35 MCV 90.2 fl (80-99) 12/03/17 04:35 MCH 30.5 pg (26.0-30.0) H 12/03/17 04:35 MCHC Differential 33.8 pg (28.0-36.0) 12/03/17 04:35 RDW 14.1 % (11.5-20.0) 12/03/17 04:35 Plt Count 116 Th/cmm (150-400) L 12/03/17 04:35 MPV 7.1 fl 12/03/17 04:35 Neutrophils % 69.6 % (40.0-80.0) 12/03/17 04:35 Lymphocytes % 19.4 % (20.0-50.0) L 12/03/17 04:35 Monocytes % 8.6 % (2.0-10.0) 12/03/17 04:35 Eosinophils % 2.3 % (0.0-5.0) 12/03/17 04:35 Basophils % 0.1 % (0.0-2.0) 12/03/17 04:35 PT 12.8 SECONDS (9.5-11.5) H 12/02/17 05:02 INR 1.22 (0.5-1.4) 12/02/17 05:02 Sodium 128 mEq/L (136-145) L 12/03/17 04:35 Potassium 3.5 mEq/L (3.5-5.1) 12/03/17 04:35 Chloride 105 mEq/L (98-107) 12/03/17 04:35 Carbon Dioxide 18.6 mEq/L (21.0-31.0) L 12/03/17 04:35 Anion Gap 7.9 (7.0-16.0) 12/03/17 04:35 BUN 15 mg/dL (7-25) 12/03/17 04:35 Creatinine 1.0 mg/dL (0.7-1.3) 12/03/17 04:35 Est GFR ( Amer) > 60.0 ml/min (>90) 12/03/17 04:35 Est GFR (Non-Af Amer) > 60.0 ml/min 12/03/17 04:35 BUN/Creatinine Ratio 15.0 12/03/17 04:35 Glucose 115 mg/dL (70-105) H 12/03/17 04:35 POC Glucose 107 MG/DL (70 - 105) H 12/02/17 07:03 Calcium 7.8 mg/dL (8.6-10.3) L 12/03/17 04:35 Magnesium 1.6 mg/dL (1.9-2.7) L 11/30/17 21:31 Total Bilirubin 1.9 mg/dL (0.3-1.0) H 12/01/17 05:20 Direct Bilirubin 1.17 mg/dL (0.0-0.2) H 12/01/17 05:20 AST 88 U/L (13-39) H 12/01/17 05:20 ALT 63 U/L (7-52) H 12/01/17 05:20 Alkaline Phosphatase 124 U/L (34-104) H 12/01/17 05:20 Ammonia 39 umol/L (16-53) 11/30/17 23:20 Total Protein 7.4 gm/dL (6.0-8.3) 12/01/17 05:20 Albumin 2.2 gm/dL (4.2-5.5) L 12/01/17 05:20 Globulin 5.2 gm/dL 12/01/17 05:20 Albumin/Globulin Ratio 0.4 (1.0-1.8) L 12/01/17 05:20 Triglycerides 97 mg/dL (<150) 12/01/17 05:20 Cholesterol 61 mg/dL (<200) 12/01/17 05:20 LDL Cholesterol Direct 37 mg/dL (75-193) L 12/01/17 05:20 HDL Cholesterol 13 mg/dL (23-92) L 12/01/17 05:20 TSH 6.18 uIU/ml (0.34-5.60) H 12/01/17 05:20 Ethyl Alcohol < 10 mg/dL (0-10) 12/02/17 05:02 Helicobacter pylori Ab NEGATIVE (NEGATIVE) 12/02/17 09:35 Hepatitis A IgM Ab Negative (Negative) 12/01/17 05:20 Hep Bs Antigen Negative (Negative) 12/01/17 05:20 Hep B Core IgM Ab Negative (Negative) 12/01/17 05:20 Hepatitis C Antibody >11.0 s/co ratio (0.0-0.9) H 12/01/17 05:20 Blood Type A POSITIVE 11/30/17 21:31 Antibody Screen NEGATIVE 11/30/17 21:31 Crossmatch See Detail 11/30/17 21:31 - Physical Exam Vitals and I&O: Vital Signs Temp 98.5 F 12/03/17 07:58 Pulse 98 12/03/17 08:12 Resp 19 12/03/17 08:16 BP 140/71 12/03/17 07:58 Pulse Ox 116 12/03/17 08:12 Intake & Output 12/02/17 12/03/17 12/03/17 18:59 06:59 18:59 Intake Total 1050 1300 Output Total 850 500 Balance 200 800 Weight (lbs) 106.594 kg 107.774 kg Intake: Intake, IV Amount 1000 Sodium Chloride 0.9% 1, 1000 000 ml @ 50 mls/hr IV . Q20H [facility] Rx#:[id number] Oral 800 300 Blood Product 250 Output: Urine 850 500 Other: # Voids 1 # Bowel Movements 1 Active Medications: Current Medications Albuterol/Ipratropium (Duoneb Neb) 3 ml HHN Q4HRT PRN PRN Reason: Shortness of Breath Stop: 01/29/18 22:16 [place] Oil/[place] Balsam/Trypsin (Venelex) 1 appl TP DAILY [facility] Stop: 01/31/18 16:59 Last Admin: 12/03/17 08:17 Dose: 1 appl Ferrous Sulfate (Iron) 325 mg PO BID [facility] Stop: 01/31/18 16:59 Last Admin: 12/03/17 08:17 Dose: 325 mg Sodium Chloride (Nacl 0.9%) 1,000 mls @ 50 mls/hr IV .Q20H [facility] Stop: 01/29/18 22:17 Last Admin: 12/02/17 20:08 Dose: 50 mls/hr Morphine Sulfate (Morphine) 1 mg IVP Q3HR PRN PRN Reason: Pain (Moderate) Stop: 01/29/18 23:19 Last Admin: 12/03/17 08:19 Dose: 1 mg Morphine Sulfate (Morphine) 2 mg IVP Q3HR PRN PRN Reason: Pain (Severe) Stop: 01/29/18 23:21 Last Admin: 12/03/17 04:22 Dose: 2 mg Ondansetron HCl (Zofran) 4 mg IVP Q6H PRN PRN Reason: Nausea / Vomiting Stop: 01/29/18 23:23 Pantoprazole Sodium (Protonix) 40 mg IVP DAILY [facility] Stop: 01/30/18 08:59 Last Admin: 12/03/17 08:17 Dose: 40 mg General: Alert, Oriented x3 HEENT: Atraumatic Neck: Supple Cardiovascular: Regular rate Abdomen: Bowel sounds, Soft, Other (no guard, mild distension, no rebound) Neurological: Normal speech Psych/Mental Status: Mental status NL - Procedures Procedures: Procedures Procedure Code Date BLOOD TRANSFUSION SERVICE 72647 11/30/17 COLONOSCOPY W/CONTROL BLEED 07084 11/30/17 CONTROL BLEEDING IN GASTROINTESTINAL TRACT, ENDO [id number] 11/30/17 EGD BIOPSY SINGLE/MULTIPLE 75988 11/30/17 EXCISION OF STOMACH, ENDO, DIAGN [id number] 11/30/17 TRANSFUSE NONAUT RED BLOOD CELLS IN PERIPH VEIN, PERC 71813F4 11/30/17 Assessment/Plan - Problem List Patient Problems: All Active Problems Anemia (Acute) D64.9 Cirrhosis (Acute) History of opioid abuse (Acute) Z87.898 Portal hypertension (Acute) K76.6 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 Possibilities include GI blood loss, bone marrow suppression from EtOH, or non blood loss anemia. EGD showed gastritis, and colonoscopy showed rectal ulcer, which was clipped. Origin of gastritis is likely EtOH given history, need to follow up biopsies # Elevated LFTs # Alcoholism May have early cirrhosis, although US does not show classic changes, and there is no ascites. Likely at least has component of alcoholic liver disease causing elevated LFTs. Plan: - abstain from EtOH - join AA - f/u gastric biopsies - track LFTs - transfuse to keep hgb > 7 - cont iron
[2017-12-03 10:19] LABS: FERRITIN 511 ng/mL (30-400); IRON LC 43 ug/dL (38-169); TIBC (LC) 203 ug/dL (250-450); UIBC 160 ug/dL (111-343)
--- NOTE | 2017-12-03 13:10 | Pathology Report ---
[id number] Collection date: 12/02/2017 Surgeon: Dr. Pierre Silva Specimen Description: 1. Antrum biopsy 2. Gastric body biopsy Gross Description: Part I: Received in formalin are two maldonado soft tissue fragments each measuring 0.1 cm in greatest dimension. Totally submitted in one cassette labeled A. Gross Description: Part II: Received in formalin are three maldonado soft tissue fragments ranging from 0.1 to 0.2 cm in greatest dimension. Totally submitted in one cassette labeled B. Microscopic Description: Part I: The histologic sections show gastric mucosa with chronic inflammation present consisting of increased numbers of lymphocytes and plasma cells. The Giemsa stain shows no evidence for Helicobacter pylori. Diagnosis: Part I: 1. Chronic gastritis, antrum biopsy 2. The Giemsa stain is negative for Helicobacter pylori. Microscopic Description: Part II: The histologic sections show gastric body mucosa with mild chronic inflammation present consisting of lymphocytes and plasma cells. The Giemsa stain shows no evidence for Helicobacter pylori. Diagnosis: Part II: 1. Chronic gastritis, gastric body biopsy. 2. The Giemsa stain is negative for Helicobacter pylori. [facility] [place]# [id number] [facility]ITAL[facility]ric
[2017-12-03] MEDS: Sodium Chloride 0.9% 1,000 ML IV SCH (15:31)
[2017-12-04] MEDS: Morphine Sulfate 2 mg/mL 1mL Syr IVP PRN ×4 (07:13→20:20)
[2017-12-04 07:21] LABS: % BASOPHILS 0.5 % (0.0-2.0); % EOSINOPHILS 2.1 % (0.0-5.0); % LYMPHOCYTES 21.3 % (20.0-50.0); % MONOCYTES 8.9 % (2.0-10.0); % NEUTROPHILS 67.2 % (40.0-80.0); EOSINOPHILE ABSOLUTE 0.1 Th/cmm (0.1-0.4); LYMPHOCYTE ABSOLUTE 1.3 Th/cmm (1.5-3.0); MEAN CELL VOLUME 90.7 fl (80-99); MEAN CORPUSCULAR HEMOGLOBIN 31.3 pg (26.0-30.0); MEAN CORPUSCULAR HGB CONC 34.5 pg (28.0-36.0); MONOCYTE ABSOLUTE 0.5 Th/cmm (0.3-1.0); PLATELET COUNT 93 Th/cmm (150-400); RED BLOOD COUNT 2.44 Mil/cmm (4.30-5.70); RED CELL DISTRIBUTION WIDTH 14.6 % (11.5-20.0)
[2017-12-04 07:27] LABS: HEMATOCRIT 22.2 % (41.0-60); HEMOGLOBIN 7.7 gm/dL (12-16); WHITE BLOOD COUNT 5.9 Th/cmm (4.8-10.8)
[2017-12-04 07:48] LABS: ANION GAP 6.7 (7.0-16.0); BUN - UREA NITROGEN 12 mg/dL (7-25); CALCIUM SERUM 7.2 mg/dL (8.6-10.3); CARBON DIOXIDE 17.3 mEq/L (21.0-31.0); CHLORIDE 109 mEq/L (98-107); CREATININE - SERUM 0.8 mg/dL (0.7-1.3); GFR AFRICAN-AMERICAN > 60.0 ml/min (>90); GFR NON AFRICAN-AMERICAN > 60.0 ml/min; GLUCOSE 117 mg/dL (70-105); SODIUM SERUM 130 mEq/L (136-145)
[2017-12-04] MEDS: Ferrous Sulfate 325 MG TAB PO SCH ×2 (08:49→17:13)
[2017-12-04] MEDS: Venelex 60gm Tube TP SCH (08:49)
[2017-12-04] MEDS ORDERED: Potassium Chloride 20 mEq ER Tab PO ONE (09:00)
--- NOTE | 2017-12-04 10:01 | GI Progress Note ---
Subjective - Review of Systems Service Date: 12/04/17 Subjective: Reports he feels cold. Denies any rectal bleeding or vomiting. Objective - Results Result Diagrams: 12/04/17 07:06 12/04/17 07:06 Recent Labs: Laboratory Last Values WBC 5.9 Th/cmm (4.8-10.8) D 12/04/17 07:06 RBC 2.44 Mil/cmm (4.30-5.70) L 12/04/17 07:06 Hgb 7.7 gm/dL (12-16) L* 12/04/17 07:06 Hct 22.2 % (41.0-60) L 12/04/17 07:06 MCV 90.7 fl (80-99) 12/04/17 07:06 MCH 31.3 pg (26.0-30.0) H 12/04/17 07:06 MCHC Differential 34.5 pg (28.0-36.0) 12/04/17 07:06 RDW 14.6 % (11.5-20.0) 12/04/17 07:06 Plt Count 93 Th/cmm (150-400) L 12/04/17 07:06 MPV 7.0 fl 12/04/17 07:06 Neutrophils % 67.2 % (40.0-80.0) 12/04/17 07:06 Lymphocytes % 21.3 % (20.0-50.0) 12/04/17 07:06 Monocytes % 8.9 % (2.0-10.0) 12/04/17 07:06 Eosinophils % 2.1 % (0.0-5.0) 12/04/17 07:06 Basophils % 0.5 % (0.0-2.0) 12/04/17 07:06 PT 12.8 SECONDS (9.5-11.5) H 12/02/17 05:02 INR 1.22 (0.5-1.4) 12/02/17 05:02 Sodium 130 mEq/L (136-145) L 12/04/17 07:06 Potassium 3.0 mEq/L (3.5-5.1) L 12/04/17 07:06 Chloride 109 mEq/L (98-107) H 12/04/17 07:06 Carbon Dioxide 17.3 mEq/L (21.0-31.0) L 12/04/17 07:06 Anion Gap 6.7 (7.0-16.0) L 12/04/17 07:06 BUN 12 mg/dL (7-25) 12/04/17 07:06 Creatinine 0.8 mg/dL (0.7-1.3) 12/04/17 07:06 Est GFR ( Amer) > 60.0 ml/min (>90) 12/04/17 07:06 Est GFR (Non-Af Amer) > 60.0 ml/min 12/04/17 07:06 BUN/Creatinine Ratio 15.0 12/04/17 07:06 Glucose 117 mg/dL (70-105) H 12/04/17 07:06 POC Glucose 107 MG/DL (70 - 105) H 12/02/17 07:03 Calcium 7.2 mg/dL (8.6-10.3) L 12/04/17 07:06 Magnesium 1.6 mg/dL (1.9-2.7) L 11/30/17 21:31 Iron 43 ug/dL (38-169) 12/02/17 05:02 TIBC 203 ug/dL (250-450) L 12/02/17 05:02 Iron Saturation 21 % (15-55) 12/02/17 05:02 Unsaturated IBC 160 ug/dL (111-343) 12/02/17 05:02 Ferritin 511 ng/mL (30-400) H 12/02/17 05:02 Total Bilirubin 1.9 mg/dL (0.3-1.0) H 12/01/17 05:20 Direct Bilirubin 1.17 mg/dL (0.0-0.2) H 12/01/17 05:20 AST 88 U/L (13-39) H 12/01/17 05:20 ALT 63 U/L (7-52) H 12/01/17 05:20 Alkaline Phosphatase 124 U/L (34-104) H 12/01/17 05:20 Ammonia 39 umol/L (16-53) 11/30/17 23:20 Total Protein 7.4 gm/dL (6.0-8.3) 12/01/17 05:20 Albumin 2.2 gm/dL (4.2-5.5) L 12/01/17 05:20 Globulin 5.2 gm/dL 12/01/17 05:20 Albumin/Globulin Ratio 0.4 (1.0-1.8) L 12/01/17 05:20 Triglycerides 97 mg/dL (<150) 12/01/17 05:20 Cholesterol 61 mg/dL (<200) 12/01/17 05:20 LDL Cholesterol Direct 37 mg/dL (75-193) L 12/01/17 05:20 HDL Cholesterol 13 mg/dL (23-92) L 12/01/17 05:20 TSH 6.18 uIU/ml (0.34-5.60) H 12/01/17 05:20 Ethyl Alcohol < 10 mg/dL (0-10) 12/02/17 05:02 Helicobacter pylori Ab NEGATIVE (NEGATIVE) 12/02/17 09:35 Hepatitis A IgM Ab Negative (Negative) 12/01/17 05:20 Hep Bs Antigen Negative (Negative) 12/01/17 05:20 Hep B Core IgM Ab Negative (Negative) 12/01/17 05:20 Hepatitis C Antibody >11.0 s/co ratio (0.0-0.9) H 12/01/17 05:20 Blood Type A POSITIVE 11/30/17 21:31 Antibody Screen NEGATIVE 11/30/17 21:31 Crossmatch See Detail 11/30/17 21:31 - Physical Exam Vitals and I&O: Vital Signs Temp 98.3 F 12/04/17 07:40 Pulse 91 12/04/17 07:40 Resp 18 12/04/17 07:40 BP 116/67 12/04/17 07:40 Pulse Ox 100 12/04/17 07:40 Intake & Output 12/03/17 12/04/17 12/04/17 18:59 06:59 18:59 Intake Total 969.167 750 Output Total 500 Balance 969.167 250 Weight (lbs) 108.862 kg Intake: Intake, IV Amount 969.167 Sodium Chloride 0.9% 1, 969.167 000 ml @ 50 mls/hr IV . Q20H JUAN Rx#:[id number] Oral 750 Output: Urine 500 Other: # Voids 2 # Bowel Movements 0 Active Medications: Current Medications Albuterol/Ipratropium (Duoneb Neb) 3 ml HHN Q4HRT PRN PRN Reason: Shortness of Breath Stop: 01/29/18 22:16 [place] Oil/[place] Balsam/Trypsin (Venelex) 1 appl TP DAILY [facility] Stop: 01/31/18 16:59 Last Admin: 12/04/17 08:49 Dose: 1 appl Ferrous Sulfate (Iron) 325 mg PO BID [facility] Stop: 01/31/18 16:59 Last Admin: 12/04/17 08:49 Dose: 325 mg Sodium Chloride (Nacl 0.9%) 1,000 mls @ 50 mls/hr IV .Q20H [facility] Stop: 01/29/18 22:17 Last Admin: 12/03/17 15:31 Dose: 50 mls/hr Morphine Sulfate (Morphine) 1 mg IVP Q3HR PRN PRN Reason: Pain (Moderate) Stop: 01/29/18 23:19 Last Admin: 12/03/17 15:31 Dose: 1 mg Morphine Sulfate (Morphine) 2 mg IVP Q3HR PRN PRN Reason: Pain (Severe) Stop: 01/29/18 23:21 Last Admin: 12/04/17 07:13 Dose: 2 mg Ondansetron HCl (Zofran) 4 mg IVP Q6H PRN PRN Reason: Nausea / Vomiting Stop: 01/29/18 23:23 Pantoprazole Sodium (Protonix) 40 mg IVP DAILY [facility] Stop: 01/30/18 08:59 Last Admin: 12/04/17 08:49 Dose: 40 mg General: Alert, Oriented x3 HEENT: Atraumatic Neck: Supple Cardiovascular: Regular rate Abdomen: Bowel sounds, Soft, Other (no guard, mild distension, no rebound) Neurological: Normal speech Psych/Mental Status: Mental status NL - Procedures Procedures: Procedures Procedure Code Date BLOOD TRANSFUSION SERVICE 77035 11/30/17 COLONOSCOPY W/CONTROL BLEED 26662 11/30/17 CONTROL BLEEDING IN GASTROINTESTINAL TRACT, ENDO [id number] 11/30/17 EGD BIOPSY SINGLE/MULTIPLE 77715 11/30/17 EXCISION OF STOMACH, ENDO, DIAGN [id number] 11/30/17 TRANSFUSE NONAUT RED BLOOD CELLS IN PERIPH VEIN, PERC 95356Q2 11/30/17 Assessment/Plan - Problem List Patient Problems: All Active Problems Anemia (Acute) D64.9 Cirrhosis (Acute) History of opioid abuse (Acute) Z87.898 Portal hypertension (Acute) K76.6 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 Possibilities include GI blood loss, bone marrow suppression from EtOH, or non blood loss anemia. EGD showed gastritis, and colonoscopy showed rectal ulcer, which was clipped. Origin of gastritis is likely EtOH given history, need to follow up biopsies Iron stidues show anemia of chronic disease. His anemia is driven by alcoholism and chronic disease rather than acute GI blood loss. # Elevated LFTs # Alcoholism May have early cirrhosis, although US does not show classic changes, and there is no ascites. Likely at least has component of alcoholic liver disease causing elevated LFTs. Plan: - abstain from EtOH - join AA - f/u gastric biopsies - track LFTs - transfuse to keep hgb > 7 - cont iron - PM CBC
[2017-12-04 10:17] LABS: HEMOGLOBIN 7.7 gm/dL (12-16)
[2017-12-04] MEDS: Sodium Chloride 0.9% 1,000 ML IV SCH (11:16)
--- NOTE | 2017-12-04 14:00 | Internal Medicine Prog Note ---
Internal Medicine Subjective - Subjective Service Date: 12/04/17 Patient is:: awake, verbal Per staff patient has:: tolerating meds Internal Medicine Objective - Results Result Diagrams: 12/04/17 07:06 12/04/17 07:06 Recent Labs: Laboratory Last Values WBC 5.9 Th/cmm (4.8-10.8) D 12/04/17 07:06 RBC 2.44 Mil/cmm (4.30-5.70) L 12/04/17 07:06 Hgb 7.7 gm/dL (12-16) L* 12/04/17 07:06 Hct 22.2 % (41.0-60) L 12/04/17 07:06 MCV 90.7 fl (80-99) 12/04/17 07:06 MCH 31.3 pg (26.0-30.0) H 12/04/17 07:06 MCHC Differential 34.5 pg (28.0-36.0) 12/04/17 07:06 RDW 14.6 % (11.5-20.0) 12/04/17 07:06 Plt Count 93 Th/cmm (150-400) L 12/04/17 07:06 MPV 7.0 fl 12/04/17 07:06 Neutrophils % 67.2 % (40.0-80.0) 12/04/17 07:06 Lymphocytes % 21.3 % (20.0-50.0) 12/04/17 07:06 Monocytes % 8.9 % (2.0-10.0) 12/04/17 07:06 Eosinophils % 2.1 % (0.0-5.0) 12/04/17 07:06 Basophils % 0.5 % (0.0-2.0) 12/04/17 07:06 PT 12.8 SECONDS (9.5-11.5) H 12/02/17 05:02 INR 1.22 (0.5-1.4) 12/02/17 05:02 Sodium 130 mEq/L (136-145) L 12/04/17 07:06 Potassium 3.0 mEq/L (3.5-5.1) L 12/04/17 07:06 Chloride 109 mEq/L (98-107) H 12/04/17 07:06 Carbon Dioxide 17.3 mEq/L (21.0-31.0) L 12/04/17 07:06 Anion Gap 6.7 (7.0-16.0) L 12/04/17 07:06 BUN 12 mg/dL (7-25) 12/04/17 07:06 Creatinine 0.8 mg/dL (0.7-1.3) 12/04/17 07:06 Est GFR ( Amer) > 60.0 ml/min (>90) 12/04/17 07:06 Est GFR (Non-Af Amer) > 60.0 ml/min 12/04/17 07:06 BUN/Creatinine Ratio 15.0 12/04/17 07:06 Glucose 117 mg/dL (70-105) H 12/04/17 07:06 POC Glucose 107 MG/DL (70 - 105) H 12/02/17 07:03 Calcium 7.2 mg/dL (8.6-10.3) L 12/04/17 07:06 Magnesium 1.6 mg/dL (1.9-2.7) L 11/30/17 21:31 Iron 43 ug/dL (38-169) 12/02/17 05:02 TIBC 203 ug/dL (250-450) L 12/02/17 05:02 Iron Saturation 21 % (15-55) 12/02/17 05:02 Unsaturated IBC 160 ug/dL (111-343) 12/02/17 05:02 Ferritin 511 ng/mL (30-400) H 12/02/17 05:02 Total Bilirubin 1.9 mg/dL (0.3-1.0) H 12/01/17 05:20 Direct Bilirubin 1.17 mg/dL (0.0-0.2) H 12/01/17 05:20 AST 88 U/L (13-39) H 12/01/17 05:20 ALT 63 U/L (7-52) H 12/01/17 05:20 Alkaline Phosphatase 124 U/L (34-104) H 12/01/17 05:20 Ammonia 39 umol/L (16-53) 11/30/17 23:20 Total Protein 7.4 gm/dL (6.0-8.3) 12/01/17 05:20 Albumin 2.2 gm/dL (4.2-5.5) L 12/01/17 05:20 Globulin 5.2 gm/dL 12/01/17 05:20 Albumin/Globulin Ratio 0.4 (1.0-1.8) L 12/01/17 05:20 Triglycerides 97 mg/dL (<150) 12/01/17 05:20 Cholesterol 61 mg/dL (<200) 12/01/17 05:20 LDL Cholesterol Direct 37 mg/dL (75-193) L 12/01/17 05:20 HDL Cholesterol 13 mg/dL (23-92) L 12/01/17 05:20 TSH 6.18 uIU/ml (0.34-5.60) H 12/01/17 05:20 Ethyl Alcohol < 10 mg/dL (0-10) 12/02/17 05:02 Helicobacter pylori Ab NEGATIVE (NEGATIVE) 12/02/17 09:35 Hepatitis A IgM Ab Negative (Negative) 12/01/17 05:20 Hep Bs Antigen Negative (Negative) 12/01/17 05:20 Hep B Core IgM Ab Negative (Negative) 12/01/17 05:20 Hepatitis C Antibody >11.0 s/co ratio (0.0-0.9) H 12/01/17 05:20 Blood Type A POSITIVE 11/30/17 21:31 Antibody Screen NEGATIVE 11/30/17 21:31 Crossmatch See Detail 11/30/17 21:31 - Physical Exam Vitals and I&O: Vital Signs Temp 97.8 F 12/04/17 12:03 Pulse 90 12/04/17 12:03 Resp 18 12/04/17 12:03 BP 121/71 12/04/17 12:03 Pulse Ox 100 12/04/17 12:03 Intake & Output 12/03/17 12/04/17 12/04/17 18:59 06:59 18:59 Intake Total 969.167 750 987.5 Output Total 500 Balance 969.167 250 987.5 Weight (lbs) 240 lb Intake: Intake, IV Amount 969.167 987.5 Sodium Chloride 0.9% 1, 969.167 987.5 000 ml @ 50 mls/hr IV . Q20H [facility] Rx#:[id number] Oral 750 Output: Urine 500 Other: # Voids 2 # Bowel Movements 0 Active Medications: Current Medications Albuterol/Ipratropium (Duoneb Neb) 3 ml HHN Q4HRT PRN PRN Reason: Shortness of Breath Stop: 01/29/18 22:16 [place] Oil/[place] Balsam/Trypsin (Venelex) 1 appl TP DAILY [facility] Stop: 01/31/18 16:59 Last Admin: 12/04/17 08:49 Dose: 1 appl Ferrous Sulfate (Iron) 325 mg PO BID [facility] Stop: 01/31/18 16:59 Last Admin: 12/04/17 08:49 Dose: 325 mg Sodium Chloride (Nacl 0.9%) 1,000 mls @ 50 mls/hr IV .Q20H [facility] Stop: 01/29/18 22:17 Last Admin: 12/04/17 11:16 Dose: 50 mls/hr Morphine Sulfate (Morphine) 1 mg IVP Q3HR PRN PRN Reason: Pain (Moderate) Stop: 01/29/18 23:19 Last Admin: 12/04/17 11:37 Dose: 1 mg Morphine Sulfate (Morphine) 2 mg IVP Q3HR PRN PRN Reason: Pain (Severe) Stop: 01/29/18 23:21 Last Admin: 12/04/17 07:13 Dose: 2 mg Ondansetron HCl (Zofran) 4 mg IVP Q6H PRN PRN Reason: Nausea / Vomiting Stop: 01/29/18 23:23 Pantoprazole Sodium (Protonix) 40 mg IVP DAILY [facility] Stop: 01/30/18 08:59 Last Admin: 12/04/17 08:49 Dose: 40 mg General: alert HEENT: NC/AT, PERRLA Neck: Supple Cardiovascular: RRR Abdomen: soft, non-tender, non-distended Neurological: alert - Procedures Procedures: Procedures Procedure Code Date BLOOD TRANSFUSION SERVICE 79385 11/30/17 COLONOSCOPY W/CONTROL BLEED 08146 11/30/17 CONTROL BLEEDING IN GASTROINTESTINAL TRACT, ENDO [id number] 11/30/17 EGD BIOPSY SINGLE/MULTIPLE 12878 11/30/17 EXCISION OF STOMACH, ENDO, DIAGN [id number] 11/30/17 TRANSFUSE NONAUT RED BLOOD CELLS IN PERIPH VEIN, PERC 30195K4 11/30/17 Internal Medicine Assmt/Plan - Assessment Assessment: anemia cirrhosis portal hypertension 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 - Plan Plan: monitor h/h follow up labs in am continue current plan of care Nutritional Asmnt/Malnutr-PDOC - Dietary Evaluation Malnutrition Findings (Please click <Entered> for more info): Nutritional Asmnt/Malnutrition Start: 12/02/17 17: 22 Text: Status: Complete Freq: Document 12/02/17 17:22 WILLIAMS (Rec: 12/02/17 17:47 ALVING [id number]) Nutritional Asmnt/Malnutrition Patient General Information Nutritional Screening High Risk Consult Diagnosis anemia Pertinent Medical Hx/Surgical Hx cirrhosis, portal hypertinsion , anemia, BPH, thrombotic cytopenic purpure, s/p septic shock, opioid and methadone abuse, celluitis Subjective Information Consult received for coccygeal presure ulcer. Pt seen lying in bed at time of visit. Pt was NPO this morning for EGD, started clear liquid diet from lunch. Per notes, PO intake 25% of lunch and dinner (clear liquid diet) on 12/01. Current Diet Order/ Nutrition Support clear liquid Pertinent Medications iron, protonix, nacl 0.9% Pertinent Labs 12/02 Na 127, K 3.5, Cl 103, BUN 18, Cr 1.1, Glucose 110, Ca 7.8 Nutritional Hx/Data Height 5 ft 8 in Height (Calculated Centimeters) 172.7 Current Weight (lbs) 235 lb Weight (Calculated Kilograms) 106.6 Weight (Calculated Grams) 807270.2 [place] Body Weight 154 % [place] Body Weight 153 Body Mass Index (BMI) 35.7 Weight Status Obese GI Symptoms GI Symptoms None Last BM 12/01 x 2 Difficult in: None Skin Integrity/Comment: Venous Stasis Ulcer to right and left lower leg, and coccyx Current %PO Negligible < 25% Estimated Nutritional Goals BEE in Kcals: Adj wt of IBW Calories/Kcals/Kg 25-30 Kcals Calculated [id number] adj wt 76kg Protein: Adj wt of IBW Protein g/k-1.2 Protein Calculated 76-91 Fluid: ml 1900-2280ml (1ml/kcal) Nutritional Problem 2. Problem Problem increased nutrition needs ( calorie and protein) Etiology increased metabolic demand for wound healing Signs/Symptoms: Venous Stasis Ulcer to right and left lower leg, and coccyx 1. Problem Problem inadequate food intake Etiology possible poor appetite and pt on clear liquid diet Signs/Symptoms: PO intake 25% Malnutrition Alert Protein-Calorie Malnutrition N/A Is there a minimum of two criteria No selected? Query Text:Check all the applicable criteria. A minimum of two criteria are recommended for diagnosis of either severe or non-severe malnutrition. Intervention/Recommendation Comments 1. Recommend Boost Breeze TID for clear liquid diet to increase nutrition intake. Advance diet as tolerated. 2. Monitor PO intake, wt, labs and skin integrity 3. F/U as high risk in 2-3 days, 12/04-12/05 Expected Outcomes/Goals Expected Outcomes/Goals 1. PO intake to meet at least 75% of nutritional needs. 2. Wt stability, skin to remain intact, labs to approach WNL.
[2017-12-04 20:22] LABS: % BASOPHILS 0.1 % (0.0-2.0); % EOSINOPHILS 0.8 % (0.0-5.0); % LYMPHOCYTES 15.7 % (20.0-50.0); % MONOCYTES 6.7 % (2.0-10.0); % NEUTROPHILS 76.7 % (40.0-80.0); EOSINOPHILE ABSOLUTE 0.1 Th/cmm (0.1-0.4); HEMOGLOBIN 8.7 gm/dL (12-16); LYMPHOCYTE ABSOLUTE 1.4 Th/cmm (1.5-3.0); MEAN CELL VOLUME 90.7 fl (80-99); MEAN CORPUSCULAR HEMOGLOBIN 29.7 pg (26.0-30.0); MEAN CORPUSCULAR HGB CONC 32.8 pg (28.0-36.0); MEAN PLATELET VOLUME 6.8 fl; MONOCYTE ABSOLUTE 0.6 Th/cmm (0.3-1.0); NEUTROPHILE ABSOLUTE 6.8 Th/cmm (1.8-8.0); PLATELET COUNT 104 Th/cmm (150-400); RED BLOOD COUNT 2.92 Mil/cmm (4.30-5.70); RED CELL DISTRIBUTION WIDTH 14.1 % (11.5-20.0)
[2017-12-04 20:25] LABS: HEMATOCRIT 26.5 % (41.0-60); WHITE BLOOD COUNT 8.9 Th/cmm (4.8-10.8)
== END 2017-12-04 23:15 | disposition home or self-care (01) | DRG 254 ==
LOC: ER 20:46 → MSI 22:26
PROVIDERS: ADMIT Internal Medicine; ATTEND Internal Medicine
PROC: 30233N1 Transfusion of Nonautologous Red Blood Cells into Peripheral Vein, Percutaneous Approach (ICD-10-PCS; principal; 2017-12-01)
PROC: 0DB68ZX Excision of Stomach, Via Natural or Artificial Opening Endoscopic, Diagnostic (ICD-10-PCS; 2017-12-02)
PROC: 0W3P8ZZ Control Bleeding in Gastrointestinal Tract, Via Natural or Artificial Opening Endoscopic (ICD-10-PCS; 2017-12-02)
PROC: 0DB78ZX Excision of Stomach, Pylorus, Via Natural or Artificial Opening Endoscopic, Diagnostic (ICD-10-PCS; 2017-12-02)
DX: K62.6 Ulcer of anus and rectum (principal); E41 Nutritional marasmus; D69.49 Other primary thrombocytopenia; K76.6 Portal hypertension; K74.60 Unspecified cirrhosis of liver; E87.1 Hypo-osmolality and hyponatremia; F11.20 Opioid dependence, uncomplicated; K25.9 Gastric ulcer, unspecified as acute or chronic, without hemorrhage or perforation; F10.20 Alcohol dependence, uncomplicated; D64.9 Anemia, unspecified; K29.70 Gastritis, unspecified, without bleeding; K31.89 Other diseases of stomach and duodenum; K57.30 Diverticulosis of large intestine without perforation or abscess without bleeding; K64.8 Other hemorrhoids; Z87.891 Personal history of nicotine dependence; Z59.0 Homelessness; Z79.899 Other long term (current) drug therapy; Z68.36 Body mass index [BMI] 36.0-36.9, adult
CPT/HCPCS: 36415-UA; 76700-TC; 80048-TC; 80061-TC; 80074-90; 80076-TC; 80320-TC; 82140-TC; 82728-90; 82948-90; 83540-90; 83550-90; 83735-TC; 84443-TC; 85025-TC; 85610-TC; 86850-TC; 86900-TC; 86901-TC; 86922-TC; 87338-TC; 88305-90; 88312-90; 94760; C9113; J2270; J3010; J7030; J7040; J7042; P9016; Z7508; Z7610